=== PATIENT | female | born 1950 | race Caucasian/White ===

== ENCOUNTER 2024-05-08 19:51 | Observation (INO) | payer MEDICARE ==
--- NOTE | 2024-05-08 20:28 | ED ---
General Adult HPI - General Chief complaint: Syncope Stated complaint: Hypertension Time Seen by Provider: 05/08/24 20:04 Source: patient, RN notes reviewed, old records reviewed Mode of arrival: ambulatory Limitations: no limitations - History of Present Illness Initial comments: 74-year-old female presents after an episode of unresponsiveness lasting several seconds. History is obtained both from the patient and her who states that she was on the couch and felt as though her eyes had rolled back and she was unresponsive. After about 15 seconds the patient did respond and had no specific complaints. There was no postictal confusion. They had checked her blood pressure at home and noted that it was quite elevated. Patient was concerned that this was related to an antibiotic she was prescribed as she has had issues with antibiotics in the past. She was prescribed an antibiotic for sinus infection. No headache. No chest pain. No fever. No abdominal pain. No vomiting. She does report chronic diarrhea which is unchanged. Patient states she did have medication changed recently but is uncertain of the exact changes. - Related Data Allergies Allergy/AdvReac Type Severity Reaction Status Date / Time Penicillins Allergy Nausea & Verified 05/08/24 19:56 Vomiting & Diarrhea Influenza Virus Vaccines AdvReac Cough Verified 05/08/24 20:01 Latex, Natural Rubber AdvReac Rash/Hives Verified 05/08/24 19:56 Review of Systems ROS Statement: Those systems with pertinent positive or pertinent negative responses have been documented in the HPI. ROS Other: All systems not noted in ROS Statement are negative. Past Medical History Past Medical History: Atrial Fibrillation, Diabetes Mellitus, GERD/Reflux, Hypertension History of Any Multi-Drug Resistant Organisms: None Reported Additional Past Surgical History / Comment(s): cataract surgery Past Psychological History: No Psychological Hx Reported Smoking Status: Never smoker Past Alcohol Use History: None Reported Past Drug Use History: None Reported General Exam Limitations: no limitations General appearance: alert, in no apparent distress Head exam: Present: atraumatic, normocephalic Eye exam: Present: normal appearance, PERRL ENT exam: Present: mucous membranes dry Neck exam: Present: normal inspection. Absent: tenderness, meningismus Respiratory exam: Present: normal lung sounds bilaterally. Absent: respiratory distress, wheezes Cardiovascular Exam: Present: regular rate, normal rhythm GI/Abdominal exam: Present: soft. Absent: distended, tenderness, guarding Neurological exam: Present: alert, oriented X3, CN II-XII intact. Absent: motor sensory deficit Psychiatric exam: Present: normal affect, normal mood Skin exam: Present: warm, dry, intact. Absent: cyanosis, diaphoretic Course Vital Signs 05/08/24 05/08/24 19:56 21:47 Temperature 97.7 F Pulse Rate 74 68 Respiratory 16 16 Rate Blood Pressure 202/84 198/61 O2 Sat by Pulse 98 96 Oximetry Medical Decision Making - Medical Decision Making Was pt. sent in by a medical professional or institution (ROSSI Rosario, ENERGY ATTORNEY, urgent care, hospital, or care home...) When possible be specific @ -No Did you speak to anyone other than the patient for history (EMS, parent, family, police, friend...)? What history was obtained from this source @ -No Did you review nursing and triage notes (agree or disagree)? Why? @ -I reviewed and agree with nursing and triage notes Were old charts reviewed (outside hosp., previous admission, EMS record, old EKG, old radiological studies, urgent care reports/EKG's, care home records)? Report findings @ -No old charts were reviewed Differential Syncope: Valvular disease, hypertrophic cardiomyopathy, pulmonary embolism, tamponade, tachycardia, bradycardia, DC, hypovolemia, hemorrhage, dissection, anemia, intracranial hemorrhage, seizure, hypoglycemia, carbon monoxide poisoning, this is not meant to be an all-inclusive list. EKG interpreted by me (3pts min.). @ -Sinus rhythm rate of 66 baseline artifact limiting assessment DE interval 197, QRS duration 110, QTc [address] segment elevation ST segment depression in the inferior lead II X-rays interpreted by me (1pt min.). @ -None done CT interpreted by me (1pt min.). @CT brain negative for intracranial hemorrhage, chronic changes present. U/S interpreted by me (1pt. min.). @ -None done What testing was considered but not performed or refused? (CT, X-rays, U/S, labs)? Why? @ -None What meds were considered but not given or refused? Why? @ -None Did you discuss the management of the patient with other professionals (professionals i.e. ROSSI Rosario, ENERGY ATTORNEY, lab, RT, psych nurse, social work msw, citrus peeler, teacher, environmental health officer, welfare case worker)? Give summary @Case discussed with Luis Enrique stanley for [facility] Was smoking cessation discussed for >3mins.? @ -No Was critical care preformed (if so, how long)? @ -No Were there social determinants of health that impacted care today? How? (Homelessness, low income, unemployed, alcoholism, drug addiction, transportation, low edu. Level, literacy, decrease access to med. care, [facility], rehab)? @ -No Was there de-escalation of care discussed even if they declined (Discuss DNR or withdrawal of care, Hospice)? DNR status @ -No What co-morbidities impacted this encounter? (DM, HTN, Smoking, COPD, CAD, Cancer, CVA, ARF, Chemo, Hep., AIDS, mental health diagnosis, sleep apnea, morbid obesity)? @ -Hypertension, diabetes Was patient admitted / discharged? Hospital course, mention meds given and route, prescriptions, significant lab abnormalities, going to OR and other pertinent info. @ -74-year-old female with brief episode of unresponsiveness and elevated blood pressure. Patient had several medication changes earlier in the week believes that her metoprolol dose was adjusted and that she was possibly taken off of amiodarone. Patient's blood pressure is elevated in the emergency department with no headache or focal neurological complaints. Head CT is negative for intracranial hemorrhage, showing chronic changes. She has a normal CBC, normal CMP, magnesium 1.5 which is replaced. Patient will be observed overnight for telemetry, cardiology consultation. Undiagnosed new problem with uncertain prognosis? @ -No Drug Therapy requiring intensive monitoring for toxicity (Heparin, Nitro, Insulin, Cardizem)? @ -No Were any procedures done? @ -No Diagnosis/symptom? @ -Syncope, hypertension Acute, or Chronic, or Acute on Chronic? @ -[Acute Uncomplicated (without systemic symptoms) or Complicated (systemic symptoms)? @ -Default Side effects of treatment? @ -No Exacerbation, Progression, or Severe Exacerbation? @ -No Poses a threat to life or bodily function? How? (Chest pain, USA, DC, pneumonia, PE, COPD, DKA, ARF, appy, cholecystitis, CVA, Diverticulitis, Homicidal, S uicidal, threat to staff... and all critical care pts) @ -Moderate risk - Lab Data Result diagrams: 05/08/24 20:24 12/06/24 20:24 Lab Results 05/08/24 05/08/24 05/08/24 Range/Units 20:24 20:24 20:24 WBC 11.6 H (3.8-10.6) k/uL RBC 4.68 (3.80-5.40) m/uL Hgb 13.5 (11.4-16.0) gm/dL Hct 42.5 (34.0-46.0) % MCV 90.8 (80.0-100.0) fL MCH 28.9 (25.0-35.0) pg MCHC 31.8 (31.0-37.0) g/dL RDW 13.2 (11.5-15.5) % Plt Count 227 (150-450) k/uL MPV 9.3 Neutrophils % 81 % Lymphocytes % 14 % Monocytes % 4 % Eosinophils % 1 % Basophils % 0 % Neutrophils # 9.4 H (1.3-7.7) k/uL Lymphocytes # 1.6 (1.0-4.8) k/uL Monocytes # 0.4 (0-1.0) k/uL Eosinophils # 0.1 (0-0.7) k/uL Basophils # 0.0 (0-0.2) k/uL PT 10.2 (10.0-12.5) sec INR 0.9 (<1.2) APTT 24.2 (22.0-30.0) sec Sodium 139 (137-145) mmol/L Potassium 3.8 (3.5-5.1) mmol/L Chloride 100 (98-107) mmol/L Carbon Dioxide 28 (22-30) mmol/L Anion Gap 11 mmol/L BUN 24 H (7-17) mg/dL Creatinine 0.76 (0.52-1.04) mg/dL Est GFR (CKD-EPI)AfAm >90 (>60 ml/min/1.73 sqM) Est GFR (CKD-EPI)NonAf 79 (>60 ml/min/1.73 sqM) Glucose 211 H (74-99) mg/dL Calcium 9.4 (8.4-10.2) mg/dL Magnesium 1.5 L (1.6-2.3) mg/dL Total Bilirubin 0.5 (0.2-1.3) mg/dL AST 22 (14-36) U/L ALT 10 (4-34) U/L Alkaline Phosphatase 64 (38-126) U/L Troponin I (0.000-0.034) ng/mL Total Protein 7.2 (6.3-8.2) g/dL Albumin 4.4 (3.5-5.0) g/dL Urine Color Urine Appearance (Clear) Urine pH (5.0-8.0) Ur Specific Duncan (1.001-1.035) Urine Protein (Negative) Urine Glucose (UA) (Negative) Urine Ketones (Negative) Urine Blood (Negative) Urine Nitrite (Negative) Urine Bilirubin (Negative) Urine Urobilinogen (<2.0) mg/dL Ur Leukocyte Esterase (Negative) 05/08/24 05/08/24 Range/Units 20:24 20:54 WBC (3.8-10.6) k/uL RBC (3.80-5.40) m/uL Hgb (11.4-16.0) gm/dL Hct (34.0-46.0) % MCV (80.0-100.0) fL MCH (25.0-35.0) pg MCHC (31.0-37.0) g/dL RDW (11.5-15.5) % Plt Count (150-450) k/uL MPV Neutrophils % % Lymphocytes % % Monocytes % % Eosinophils % % Basophils % % Neutrophils # (1.3-7.7) k/uL Lymphocytes # (1.0-4.8) k/uL Monocytes # (0-1.0) k/uL Eosinophils # (0-0.7) k/uL Basophils # (0-0.2) k/uL PT (10.0-12.5) sec INR (<1.2) APTT (22.0-30.0) sec Sodium (137-145) mmol/L Potassium (3.5-5.1) mmol/L Chloride (98-107) mmol/L Carbon Dioxide (22-30) mmol/L Anion Gap mmol/L BUN (7-17) mg/dL Creatinine (0.52-1.04) mg/dL Est GFR (CKD-EPI)AfAm (>60 ml/min/1.73 sqM) Est GFR (CKD-EPI)NonAf (>60 ml/min/1.73 sqM) Glucose (74-99) mg/dL Calcium (8.4-10.2) mg/dL Magnesium (1.6-2.3) mg/dL Total Bilirubin (0.2-1.3) mg/dL AST (14-36) U/L ALT (4-34) U/L Alkaline Phosphatase (38-126) U/L Troponin I 0.014 (0.000-0.034) ng/mL Total Protein (6.3-8.2) g/dL Albumin (3.5-5.0) g/dL Urine Color Colorless Urine Appearance Clear (Clear) Urine pH 7.5 (5.0-8.0) Ur Specific Duncan 1.006 (1.001-1.035) Urine Protein Negative (Negative) Urine Glucose (UA) 4+ H (Negative) Urine Ketones Negative (Negative) Urine Blood Negative (Negative) Urine Nitrite Negative (Negative) Urine Bilirubin Negative (Negative) Urine Urobilinogen <2.0 (<2.0) mg/dL Ur Leukocyte Esterase Negative (Negative) Disposition Clinical Impression: Syncope, Hypertension Disposition: ADMITTED IP TO THIS HOSP Condition: Stable Is patient prescribed a controlled substance at d/c from ED?: No Referrals: Gerhard Beth DO [Primary Care Provider] - 1-2 days Time of Disposition: 22:15
[2024-05-08 20:44] LABS: Basophils % (A) 0 %; Eosinophils # (A) 0.1 k/uL (0-0.7); Eosinophils % (A) 1 %; HCT 42.5 % (34.0-46.0); HGB 13.5 gm/dL (11.4-16.0); Lymphocytes # (A) 1.6 k/uL (1.0-4.8); Lymphocytes % (A) 14 %; MCH 28.9 pg (25.0-35.0); MCHC 31.8 g/dL (31.0-37.0); MCV 90.8 fL (80.0-100.0); Mean Platelet Volume 9.3; Monocytes # (A) 0.4 k/uL (0-1.0); Monocytes % (A) 4 %; Neutrophils # (A) 9.4 k/uL (1.3-7.7); Neutrophils % (A) 81 %; Platelet Count 227 k/uL (150-450); RBC 4.68 m/uL (3.80-5.40); RDW 13.2 % (11.5-15.5); WBC 11.6 k/uL (3.8-10.6)
--- NOTE | 2024-05-08 20:54 | CT ---
EXAMINATION TYPE: CT brain wo con CT DLP: 1096 mGycm, Automated exposure control for dose reduction was used. DATE OF EXAM: 05/08/2024 8:45 PM COMPARISON: . CLINICAL INDICATION:Female, 74 years old with history of syncope/HTN, Syncope/HTN. TECHNIQUE: Brain: Axial CT images of the brain were obtained with coronal and sagittal reformats created and rev iewed. Contrast used: None. Oral contrast used: None. FINDINGS: Brain: Extra-axial spaces: Mildly prominent CSF attenuated fluid along the bilateral frontal convexities. Ventricular system: Dilatation in proportion to cerebral atrophy. Cerebral parenchyma: Cerebral atrophy. No acute intraparenchymal hemorrhage or mass effect. The cobian -white junction is well differentiated. Small area of hypoattenuation in the right parietal lobe li rd related to remote injury. Cerebellum: Unremarkable. Mass effect: No evidence of midline shift. Intracranial vasculature: Atherosclerotic calcifications of the intracranial vessels. Soft tissues: Normal. Calvarium/osseous structures: No acute depressed skull fracture. Paranasal sinuses and mastoid air cells: Mild scattered paranasal sinus disease. Visualized orbits: Right aphakia IMPRESSION: 1. No acute intracranial process. 2. Mildly prominent CSF attenuated fluid along the bilateral frontal convexities is likely related to atrophic changes and less likely chronic subdural hematomas. Correlate for any remote history of tra mata. This finding could be better delineated with MRI if clinically warranted. 3. Remote lacunar injury involving the right parietal lobe. [facility], , 05/08/2024 8:52 PM
[2024-05-08 20:57] LABS: INR 0.9 (<1.2); Partial Thromboplastin Time 24.2 sec (22.0-30.0); Prothrombin Time 10.2 sec (10.0-12.5)
[2024-05-08 20:59] LABS: ALT 10 U/L (4-34); AST 22 U/L (14-36); African American GFR (CKD) >90 (>60 ml/min/1.73 sqM); Albumin 4.4 g/dL (3.5-5.0); Alkaline Phosphatase 64 U/L (38-126); Anion Gap 11 mmol/L; Blood Urea Nitrogen 24 mg/dL (7-17); Calcium 9.4 mg/dL (8.4-10.2); Carbon Dioxide 28 mmol/L (22-30); Chloride 100 mmol/L (98-107); Glucose 211 mg/dL (74-99); Magnesium 1.5 mg/dL (1.6-2.3); Non-African American GFR(CKD) 79 (>60 ml/min/1.73 sqM); Potassium 3.8 mmol/L (3.5-5.1); Sodium 139 mmol/L (137-145); Total Bilirubin 0.5 mg/dL (0.2-1.3); Total Protein 7.2 g/dL (6.3-8.2)
[2024-05-08] MEDS: SODIUM CHLORIDE 0.9% 500 ML 500 ML IV STA (21:06)
[2024-05-08 21:13] LABS: Appearance,Urine Clear (Clear); Bilirubin,Urine Negative (Negative); Blood,Urine Negative (Negative); Color,Urine Colorless; Glucose,Urine (UA) 4+ (Negative); Ketones,Urine Negative (Negative); Leukocyte Esterase,Urine Negative (Negative); Nitrite,Urine Negative (Negative); PH, Urine 7.5 (5.0-8.0); Protein,Urine Negative (Negative); Specific Gravity,Urine 1.006 (1.001-1.035); Urobilinogen,Urine <2.0 mg/dL (<2.0)
[2024-05-08] MEDS ORDERED: NALOXONE 0.4 MG/ML 1 ML VIAL IV PRN (22:10)
[2024-05-08] MEDS: MAGNESIUM SULFATE-D5W PMX 1 GM in DEXTROSE/WATER 1 100ML.BAG IVPB ONE (22:59)
[2024-05-08] MEDS: SODIUM CHLORIDE 0.9% 1,000 ML IV SCH (23:35)
[2024-05-08] MEDS: APIXABAN 5 MG TAB PO SCH (23:35)
[2024-05-08] MEDS: metFORMIN 500 MG TAB PO SCH (23:44)
[2024-05-09] MEDS: DAPAGLIFLOZIN PROPANEDIOL 10 MG TABLET PO SCH (08:29)
[2024-05-09] MEDS: METOPROLOL TARTRATE 50 MG TAB PO SCH (08:29)
[2024-05-09] MEDS: amLODIPine 10 MG TAB PO SCH (08:29)
[2024-05-09] MEDS: CHLORTHALIDONE 25 MG TAB PO SCH (08:30)
--- NOTE | 2024-05-09 08:53 | P.CRDCN ---
History of Present Illness History of present illness: HISTORY OF PRESENT ILLNESS: This is a 74-year-old female with a past medical history significant for atrial fibrillation, hypertension, hyperlipidemia, and diabetes. Patient follows in the office with Dr. Narayan. We have been asked to see the patient in consultation for syncope and hypertension. Patient examined at the bedside. Patient states that she has been having some sinus problems over the past few days. She went to her PCP and was prescribed an antibiotic. She states that she took the first dose and then began to feel lightheaded. She states that she was sitting on the c ouch and passed out while she was sitting there. She states she was only out for 1 to 2 seconds and then came to. She denies feeling confused afterwards. Denies loss of bowel or bladder. Patient's blood pressure was found to be significantly elevated with a systolic greater than 200. DIAGNOSTICS: - EKG reveals sinus mechanism with right bundle branch block. - Laboratory data: WBC 11.6. Hemoglobin 13.5. Platelet count 227. Sodium 139. Potassium 3.8. BUN 24. Creatinine 0.76. Magnesium 1.5. Troponin negative x 3. - Current home cardiac medications include chlorthalidone 25 mg daily, metoprolol tartrate 50 mg twice a day, Eliquis 5 mg twice a day - Most recent echocardiogram obtained in November 2022 revealed ejection fraction 55%, mild diastolic dysfunction, aortic valve sclerosis with no pulmonary hypertension. -Patient underwent stress echocardiogram in October 2022. Patient walked for 6 minutes 21 seconds. No ischemia noted. REVIEW OF SYSTEMS: At the time of my exam: CONSTITUTIONAL: Denies fever or chills. HEENT: Denies blurred vision, vision changes, or eye pain. Denies hemoptysis CARDIOVASCULAR: Denies chest pain. Denies orthopnea. Denies PND. Denies palpitations RESPIRATORY: Denies shortness of breath. GASTROINTESTINAL: Denies abdominal pain. Denies nausea or vomiting. HEMATOLOGIC: Denies bleeding disorders. GENITOURINARY: Denies any blood in urine. SKIN: Denies pruitis. Denies rash. PHYSICAL EXAM: VITAL SIGNS: Reviewed. GENERAL: Well-developed in no acute distress. HEENT: Head is normocephalic. Pupils are equal, round. Sclerae anicteric. Mucous membranes of the mouth are moist. Neck supple. No JVD or thyromegaly LUNGS: Respirations even and unlabored. Lungs essentially clear to auscultation bilaterally. HEART: Regular rate and rhythm. S1 and S2 heard. Systolic murmur noted. ABDOMEN: Soft. Nondistended. Nontender. EXTREMITIES: Normal range of motion. No clubbing or cyanosis. Peripheral pulses intact. No lower extremity edema NEUROLOGIC: Awake and alert. Oriented x 3. ASSESSMENT: Hypertensive urgency Reported syncope Hypomagnesemia Paroxysmal atrial fibrillation History of hypertension History of hyperlipidemia Diabetes PLAN: Obtain 2D echo to assess cardiac structure and function Resume home cardiac medications Add amlodipine 10 mg daily If patient's blood pressure continues to remain elevated, add FATOU/ARB Obtain orthostatic blood pressures Continue telemetry monitoring to assess for any arrhythmias, significant bradycardia, or heart block Recheck magnesium this morning. Supplement per protocol. Further recommendations pending patient course Nurse practitioner note has been reviewed by physician. Signing provider agrees with the documented findings, assessment, and plan of care documented by THERAPEUTIC RECREATION ASSISTANT as a scribe. Past Medical History Past Medical History: Atrial Fibrillation, Diabetes Mellitus, GERD/Reflux, Hypertension History of Any Multi-Drug Resistant Organisms: None Reported Additional Past Surgical History / Comment(s): cataract surgery Past Psychological History: No Psychological Hx Reported Smoking Status: Never smoker Past Alcohol Use History: None Reported Past Drug Use History: None Reported Medications and Allergies Home Medications Medication Instructions Recorded Confirmed Type Apixaban [Eliquis] 5 mg PO BID 05/08/24 05/08/24 History Chlorthalidone 25 mg PO 05/08/24 History Empagliflozin [Jardiance] 25 mg PO 05/08/24 History Metoprolol Tartrate [Lopressor] 50 mg PO BID 05/08/24 05/08/24 History metFORMIN HCL ER [Glucophage XR] 1,000 mg PO BID 05/08/24 05/08/24 History Allergies Allergy/AdvReac Type Severity Reaction Status Date / Time Penicillins Allergy Nausea & Verified 05/08/24 19:56 Vomiting & Diarrhea Influenza Virus Vaccines AdvReac Cough Verified 05/08/24 20:01 Latex, Natural Rubber AdvReac Rash/Hives Verified 05/08/24 19:56 Physical Exam Vitals: Vital Signs Temp Pulse Pulse Resp BP BP Pulse Ox 05/09/24 02:00 97.8 F 65 17 161/71 96 05/08/24 23:00 58 L 16 216/69 96 05/08/24 21:47 68 16 198/61 96 05/08/24 19:56 97.7 F 74 16 202/84 98 Intake and Output 05/08/24 05/09/24 05/09/24 22:59 06:59 14:59 Other: # Voids 2 Weight 57.606 kg Results 05/08/24 20:24 05/08/24 20:24 Cardiac Enzymes 05/08/24 05/08/24 05/09/24 Range/Units 20:24 20:24 00:23 AST 22 (14-36) U/L Troponin I 0.014 0.018 (0.000-0.034) ng/mL 05/09/24 Range/Units 04:41 AST (14-36) U/L Troponin I 0.021 (0.000-0.034) ng/mL Coagulation 05/08/24 Range/Units 20:24 PT 10.2 (10.0-12.5) sec APTT 24.2 (22.0-30.0) sec CBC 05/08/24 Range/Units 20:24 WBC 11.6 H (3.8-10.6) k/uL RBC 4.68 (3.80-5.40) m/uL Hgb 13.5 (11.4-16.0) gm/dL Hct 42.5 (34.0-46.0) % Plt Count 227 (150-450) k/uL Comprehensive Metabolic Panel 05/08/24 Range/Units 20:24 Sodium 139 (137-145) mmol/L Potassium 3.8 (3.5-5.1) mmol/L Chloride 100 (98-107) mmol/L Carbon Dioxide 28 (22-30) mmol/L BUN 24 H (7-17) mg/dL Creatinine 0.76 (0.52-1.04) mg/dL Glucose 211 H (74-99) mg/dL Calcium 9.4 (8.4-10.2) mg/dL AST 22 (14-36) U/L ALT 10 (4-34) U/L Alkaline Phosphatase 64 (38-126) U/L Total Protein 7.2 (6.3-8.2) g/dL Albumin 4.4 (3.5-5.0) g/dL Current Medications Generic Name Dose Route Start Last Admin Trade Name Freq PRN Reason Stop Dose Admin Acetaminophen 650 mg 05/08/24 22:10 Acetaminophen Tab 325 Mg Tab PO Q6HR PRN Mild Pain or Fever > 100.5 Apixaban 5 mg 05/08/24 23:00 05/08/24 23:35 Apixaban 5 Mg Tab PO Not Given BID LASHAWN Protocol Chlorthalidone 25 mg 05/09/24 09:00 Chlorthalidone 25 Mg Tab PO DAILY LASHAWN Dapagliflozin 10 mg 05/09/24 09:00 Dapagliflozin Propanediol 10 Mg Tablet PO DAILY LASHAWN Sodium Chloride 1,000 mls @ 75 mls/hr 05/08/24 22:15 05/08/24 23:35 Saline 0.9% IV 75 mls/hr .[id number] LASHAWN Administration Metformin HCl 500 mg 05/09/24 00:00 05/08/24 23:44 Metformin 500 Mg Tab PO 500 mg Q6HR LASHAWN Administration Metoprolol Tartrate 25 mg 05/09/24 09:00 Metoprolol Tartrate 50 Mg Tab PO BID LASHAWN Naloxone HCl 0.2 mg 05/08/24 22:10 Naloxone 0.4 Mg/Ml 1 Ml Vial IV Q2M PRN Opioid Reversal Intake and Output 05/08/24 05/09/24 05/09/24 22:59 06:59 14:59 Other: # Voids 2 Weight 57.606 kg 05/08/24 20:24 05/08/24 20:24
[2024-05-09] MEDS ORDERED: DEXTROSE 50% SYRINGE 50 ML IVP PRN ×2 (09:25)
[2024-05-09] MEDS ORDERED: cloNIDine HCL 0.1 MG TAB PO PRN (09:27)
--- NOTE | 2024-05-09 11:39 | CA ---
Transthoracic Echo Report Name: Maylin Montoya Age: 74 Gender: F : 1950 Exam Date: 05/09/2024 08:39 Exam Location: [place] [facility] Ht (in): 59 Wt (lb): 127 Ordering Physician: Ro Christie Attending/Referring Phys: [id number], Shahnaz Legal Arbitrator Kecia Jin, SCARLETT Procedure CPT: Indications: LV function, syncope, elevated BP Cardiac Hx: Technical Quality: Good Contrast 1: Total Dose (mL): Contrast 2: Total Dose (mL): MEASUREMENTS (Male / Female) Normal Values 2D ECHO LV Diastolic Diameter PLAX 4.0 cm 4.2 - 5.9 / 3.9 - 5.3 cm LV Systolic Diameter PLAX 2.3 cm IVS Diastolic Thickness 1.4 cm 0.6 - 1.0 / 0.6 - 0.9 cm LVPW Diastolic Thickness 1.4 cm 0.6 - 1.0 / 0.6 - 0.9 cm LV Relative Wall Thickness 0.7 RV Internal Dim ED PLAX 3.3 cm LA Systolic Diameter LX 3.6 cm 3.0 - 4.0 / 2.7 - 3.8 cm LV Diastolic Volume MOD BP 89.7 cm??? 67 - 155 / 56 - 104 cm??? LV Systolic Volume MOD BP 29.6 cm??? 22 - 58 / 19 - 49 cm??? LV Ejection Fraction MOD BP 67.0 % >= 55 % LV Cardiac Index MOD BP 2074.8 cm???/min???m??? LV Diastolic Volume MOD 4C 88.4 cm??? LV Systolic Volume MOD 4C 31.5 cm??? LV Ejection Fraction MOD 4C 64.4 % LV Cardiac Index MOD 4C 1967.2 cm???/min???m??? LV Diastolic Length 4C 5.8 cm LV Systolic Length 4C 5.7 cm LV Diastolic Volume MOD 2C 88.8 cm??? LV Systolic Volume MOD 2C 25.7 cm??? LV Ejection Fraction MOD 2C 71.0 % LV Cardiac Index MOD 2C 2177.4 cm???/min???m??? LV Diastolic Length 2C 6.3 cm LV Systolic Length 2C 5.0 cm LA Volume 81.0 cm??? 18 - 58 / 22 - 52 cm??? LA Volume Index 51.8 cm???/m??? 16 - 28 cm???/m??? M-MODE Aortic Root Diameter MM 2.7 cm AV Cusp Separation MM 1.7 cm DOPPLER AV Peak Velocity 246.1 cm/s AV Peak Gradient 24.2 mmHg AV Mean Velocity 157.5 cm/s AV Mean Gradient 11.0 mmHg AV Velocity Time Integral 53.0 cm LVOT Peak Velocity 138.9 cm/s LVOT Peak Gradient 7.7 mmHg LVOT Velocity Time Integral 40.2 cm MV Peak Velocity 264.5 cm/s MV Peak Gradient 28.0 mmHg MV Mean Velocity 101.7 cm/s MV Mean Gradient 5.7 mmHg MV Velocity Time Integral 59.1 cm MV Area PHT 3.5 cm??? Mitral E Point Velocity 188.3 cm/s Mitral A Point Velocity 77.8 cm/s Mitral E to A Ratio 2.4 MV Deceleration Time 215.6 ms TR Peak Velocity 283.9 cm/s TR Peak Gradient 32.2 mmHg Right Ventricular Systolic Press 35.4 mmHg FINDINGS Left Ventricle Left ventricular ejection fraction is estimated at 60-65 %. Left ventricular cavity size normal. Moderate concentric left ventricular hypertrophy. Right Ventricle Mild right ventricular dilatation. Mild pulmonary hypertension. Right Atrium Normal right atrial size. No right atrial thrombus or mass seen. Left Atrium Severely increased left atrial volume. Mildly increased left atrial area. No left atrial thrombus or mass present. Mitral Valve Mitral valve thickened. Moderate mitral annular calcification. Moderate mitral stenosis with mean gradient of 6 mmHg Aortic Valve Aortic valve sclerosis. Mild aortic stenosis with a peak gradient of 24 mmHg and a mean gradient of 11 mmHg. Tricuspid Valve Structurally normal tricuspid valve. Mild tricuspid regurgitation. Pulmonic Valve Structurally normal pulmonic valve. Mild pulmonic regurgitation. Pericardium No pericardial or pleural effusion. Aorta Normal size aortic root and proximal ascending aorta. CONCLUSIONS Normal LV function Mitral annular calcification with moderate mitral stenosis Mild aortic stenosis Previewed by: Dr. Vijay Christiansen MD (Electronically Signed) Final Date: 09 May 2024 11:39
[2024-05-09] MEDS: ATORVASTATIN 40 MG TAB PO SCH (12:03)
[2024-05-09] MEDS: LOSARTAN 25 MG TAB PO SCH (12:03)
[2024-05-09] MEDS: carvediloL 3.125 MG TAB PO SCH (12:27)
[2024-05-09 13:22] LABS: Glucose,Whole Blood 187 mg/dL (70-110)
[2024-05-09] MEDS: INSULIN ASPART (NovoLOG) 100 UNIT/ML VIAL SQ SCH (13:56)
--- NOTE | 2024-05-09 15:02 | P.HPIM ---
History of Present Illness H&P Date: 05/09/24 History of present illness; Patient is a 74-year-old female with A-fib, diabetes mellitus, GERD, hype rtension presented with syncope and hypertension. Patient states that she was recently prescribed antibiotics for sinus infection. Yesterday after taking antibiotics she felt lightheaded and passed out on the couch for a few seconds. When she woke up she stated she was confused. There was no loss of bowel or bladder. Also was noted she had a systolic blood pressure over 200. This morning when seen she had no other complaints. Patient reports absence of fever, chills, chest pain, palpitations, diaphoresis, dyspnea, cough, abdominal pain, weakness, and dysuria. Initial labs WBC 11.6, hemoglobin of 13.5, INR 0.9, APTT 24.2, sodium 139, potassium 3.8, bicarb 28, gap 11, BUN 24, creatinine 0.76, glucose 211, magnesium 1.5, troponin 0.014 => 0.018 => 0.021, UA revealing glucose 4+. EKG done in the ER independently interpreted showed sinus rhythm heart rate of 66 with RBBB, no ST segment elevation or depression seen, no T-wave inversions seen. CT head done independently interpreted showed no acute intracranial process, mild CSF fluid collections breath consulting likely atrophic. Spoke with the ER physician, patient admission was accepted by internal medicine service for treatment. REVIEW OF SYSTEMS: Pertinent positives and negatives noted in HPI. PHYSICAL EXAMINATION: Vitals reviewed GENERAL: No acute distress. Well developed, well nourished. HEENT: Pupils are round and equally reacting to light. EOMI. No scleral icterus. Normocephalic, atraumatic. No pharyngeal erythema. No thyromegaly. CARDIOVASCULAR: S1 and S2 present. No murmurs, rubs, or gallops. PULMONARY: Chest is clear to auscultation, no wheezing, rhonchi, or crackles. ABDOMEN: Soft, nontender, nondistended, normoactive bowel sounds. No palpable organomegaly. MUSCULOSKELETAL: No apparent joint swelling and deformities. EXTREMITIES: No apparent cyanosis, clubbing, or pedal edema. NEUROLOGICAL: The patient is alert and oriented x3, Gross neurological examination did not reveal any focal deficits. SKIN: No apparent rashes. Assessment and plan Patient is a 74-year-old female with A-fib, diabetes mellitus, GERD, hypertension presented with syncope and hypertension. # Hypertensive urgency # Syncope Orthostatics WNL Echocardiogram findings of normal LV function EF of 60 to 65% Begin amlodipine 10 mg daily and losartan 25 mg daily Continuous cardiac monitoring Monitor BMP #Hypomagnesia Initially 1.5 => 1.8 Magnesium replacement given #Uncontrolled Hyperglycemia #Diabetes mellitus, type 2 Initial glucose 211 Holding oral medications Begin Accu-Cheks and low-dose sliding scale, monitor for hypoglycemia Pending HbA1c #Sinus infection Resume home antibiotic Chronic Medical Conditions # Essential hypertension -As above # Paroxysmal A-fib - Resume home Eliquis, holding metoprolol #Hyperlipidemia Resume home Lipitor F: IV Normal saline 75 mL/hr E: Given magnesium, replete as needed N: Heart healthy diet DVT ppx: Eliquis 5 mg twice daily Code status: Full code Anticipated discharge place: Home Anticipated discharge time: Tomorrow Dictation was produced using [employer] dictation software. Please excuse any grammatical, word or spelling errors. Past Medical History Past Medical History: Atrial Fibrillation, Diabetes Mellitus, GERD/Reflux, Hypertension History of Any Multi-Drug Resistant Organisms: None Reported Additional Past Surgical History / Comment(s): cataract surgery Past Psychological History: No Psychological Hx Reported Smoking Status: Never smoker Past Alcohol Use History: None Reported Past Drug Use History: None Reported Medications and Allergies Home Medications Medication Instructions Recorded Confirmed Type Apixaban [Eliquis] 5 mg PO BID 05/08/24 05/09/24 History Empagliflozin [Jardiance] 25 mg PO DAILY 05/08/24 05/09/24 History Metoprolol Tartrate [Lopressor] 50 mg PO BID 05/08/24 05/09/24 History metFORMIN HCL ER [Glucophage XR] 1,000 mg PO BID 05/08/24 05/09/24 History Amiodarone [Cordarone] 200 mg PO DAILY 05/09/24 05/09/24 History Atorvastatin [Lipitor] 40 mg PO DAILY 05/09/24 05/09/24 History Azithromycin [Zithromax Z Pack] See Taper PO DIRECTED 05/09/24 05/09/24 History Chlorthalidone [Hygroton] 25 mg PO DAILY 05/09/24 05/09/24 History Sulfamethox-Tmp 800-160Mg [Bactrim 1 tab PO Q12HR 12/07/24 12/07/24 History DS 800-160 mg] hydrOXYzine HCL [Hydroxyzine HCl] 10 mg PO Q8H PRN 05/09/24 05/09/24 History Allergies Allergy/AdvReac Type Severity Reaction Status Date / Time Penicillins Allergy Nausea & Verified 05/08/24 19:56 Vomiting & Diarrhea Influenza Virus Vaccines AdvReac Cough Verified 05/08/24 20:01 Latex, Natural Rubber AdvReac Rash/Hives Verified 05/08/24 19:56 Physical Exam Vitals: Vital Signs Temp Pulse Pulse Pulse Pulse Pulse Pulse 05/09/24 11:08 58 L 05/09/24 09:19 58 L 62 58 L 05/09/24 07:00 97.9 F 64 05/09/24 02:00 97.8 F 65 05/08/24 23:00 58 L 05/08/24 21:47 68 05/08/24 19:56 97.7 F 74 Resp BP BP BP BP BP Pulse Ox 05/09/24 11:08 199/69 95 05/09/24 09:19 214/74 206/74 201/68 05/09/24 07:00 16 213/72 97 05/09/24 02:00 17 161/71 96 05/08/24 23:00 16 216/69 96 05/08/24 21:47 16 198/61 96 05/08/24 19:56 16 202/84 98 Intake and Output 05/08/24 05/09/24 05/09/24 22:59 06:59 14:59 Intake Total 240 Balance 240 Intake: Oral 240 Other: # Voids 2 5 Weight 57.606 kg Results CBC & Chem 7: 05/08/24 20:24 05/08/24 20:24 Labs: Abnormal Lab Results - Last 24 Hours (Table) 05/08/24 05/08/24 05/08/24 Range/Units 20:24 20:24 20:54 WBC 11.6 H (3.8-10.6) k/uL Neutrophils # 9.4 H (1.3-7.7) k/uL BUN 24 H (7-17) mg/dL Glucose 211 H (74-99) mg/dL POC Glucose (mg/dL) (70-110) mg/dL Magnesium 1.5 L (1.6-2.3) mg/dL Urine Glucose (UA) 4+ H (Negative) 05/09/24 Range/Units 13:20 WBC (3.8-10.6) k/uL Neutrophils # (1.3-7.7) k/uL BUN (7-17) mg/dL Glucose (74-99) mg/dL POC Glucose (mg/dL) 187 H (70-110) mg/dL Magnesium (1.6-2.3) mg/dL Urine Glucose (UA) (Negative)
[2024-05-09 17:27] LABS: Glucose,Whole Blood 127 mg/dL (70-110)
[2024-05-09] MEDS: SULFAMETHOX-TMP 800-160MG 1 EACH TAB PO SCH (18:43)
[2024-05-09] MEDS: ACETAMINOPHEN TAB 325 MG TAB PO PRN (19:49)
[2024-05-09 19:59] LABS: Glucose,Whole Blood 169 mg/dL (70-110)
[2024-05-09] MEDS ORDERED: hydrALAZINE HCL 20 MG/ML 1 ML VIAL IVP PRN (20:55)
[2024-05-10 05:40] LABS: Glucose,Whole Blood 129 mg/dL (70-110)
[2024-05-10 07:42] VITALS: RESP 16
[2024-05-10 07:52] LABS: Basophils # (A) 0.1 k/uL (0-0.2); Basophils % (A) 1 %; Eosinophils # (A) 0.2 k/uL (0-0.7); Eosinophils % (A) 2 %; HCT 46.7 % (34.0-46.0); Lymphocytes # (A) 1.9 k/uL (1.0-4.8); Lymphocytes % (A) 21 %; MCH 28.7 pg (25.0-35.0); MCHC 32.2 g/dL (31.0-37.0); MCV 89.2 fL (80.0-100.0); Mean Platelet Volume 9.6; Monocytes # (A) 0.7 k/uL (0-1.0); Monocytes % (A) 7 %; Neutrophils # (A) 6.1 k/uL (1.3-7.7); Neutrophils % (A) 68 %; Platelet Count 274 k/uL (150-450); RBC 5.23 m/uL (3.80-5.40); RDW 13.5 % (11.5-15.5)
[2024-05-10 08:03] LABS: Partial Thromboplastin Time 24.1 sec (22.0-30.0); Prothrombin Time 10.6 sec (10.0-12.5)
[2024-05-10] MEDS: LOSARTAN 50 MG TAB PO SCH (08:09)
[2024-05-10 08:11] LABS: ALT 9 U/L (4-34); AST 20 U/L (14-36); African American GFR (CKD) 79 (>60 ml/min/1.73 sqM); Albumin 4.6 g/dL (3.5-5.0); Albumin/Globulin Ratio 1.5; Alkaline Phosphatase 70 U/L (38-126); Anion Gap 8 mmol/L; Blood Urea Nitrogen 16 mg/dL (7-17); Calcium 9.9 mg/dL (8.4-10.2); Carbon Dioxide 32 mmol/L (22-30); Chloride 99 mmol/L (98-107); Glucose 156 mg/dL (74-99); Magnesium 1.8 mg/dL (1.6-2.3); Non-African American GFR(CKD) 68 (>60 ml/min/1.73 sqM); Potassium 4.6 mmol/L (3.5-5.1); Sodium 139 mmol/L (137-145); Total Bilirubin 0.8 mg/dL (0.2-1.3); Total Protein 7.6 g/dL (6.3-8.2)
[2024-05-10] MEDS ORDERED: LOSARTAN 25 MG TAB PO SCH (09:00)
--- NOTE | 2024-05-10 10:59 | P.PN ---
Subjective HISTORY OF PRESENT ILLNESS: This is a 74-year-old female with a past medical history significant for atrial fibrillation, hypertension, hyperlipidemia, and diabetes. Patient follows in the office with Dr. Narayan. We have been asked to see the patient in consultation for syncope and hypertension. Patient examined at the bedside. Patient states that she has been having some sinus problems over the past few days. She went to her PCP and was prescribed an antibiotic. She states that she took the first dose and then began to feel lightheaded. She states that she was sitting on the couch and passed out while she was sitting there. She states she was only out for 1 to 2 seconds and then came to. She denies feeling confused afterwards. D enies loss of bowel or bladder. Patient's blood pressure was found to be significantly elevated with a systolic greater than 200. DIAGNOSTICS: - EKG reveals sinus mechanism with right bundle branch block. - Laboratory data: WBC 11.6. Hemoglobin 13.5. Platelet count 227. Sodium 139. Potassium 3.8. BUN 24. Creatinine 0.76. Magnesium 1.5. Troponin negative x 3. - Current home cardiac medications include chlorthalidone 25 mg daily, metoprolol tartrate 50 mg twice a day, Eliquis 5 mg twice a day - Most recent echocardiogram obtained in November 2022 revealed ejection fraction 55%, mild diastolic dysfunction, aortic valve sclerosis with no pulmonary hypertension. -Patient underwent stress echocardiogram in October 2022. Patient walked for 6 minutes 21 seconds. No ischemia noted. 05/10/2024 Patient examined this morning at bedside. Patient currently denies chest pain or pressure. She denies shortness of breath. Blood pressure remains elevated this morning at 190/76. Telemetry reveals sinus mechanism. Echocardiogram completed revealing ejection fraction 60 to 65%, mild pulmonary hypertension, moderate mitral stenosis, mild aortic stenosis, mild tricuspid regurgitation PHYSICAL EXAM: VITAL SIGNS: Reviewed. GENERAL: Well-developed in no acute distress. HEENT: Head is normocephalic. Pupils are equal, round. Sclerae anicteric. Mucous membranes of the mouth are moist. Neck supple. No JVD or thyromegaly LUNGS: Respirations even and unlabored. Lungs essentially clear to auscultation bilaterally. HEART: Regular rate and rhythm. S1 and S2 heard. Systolic murmur noted. ABDOMEN: Soft. Nondistended. Nontender. EXTREMITIES: Normal range of motion. No clubbing or cyanosis. Peripheral pulses intact. No lower extremity edema NEUROLOGIC: Awake and alert. Oriented x 3. ASSESSMENT: Hypertensive urgency Reported syncope Hypomagnesemia Paroxysmal atrial fibrillation History of hypertension History of hyperlipidemia Diabetes PLAN: 2D echo obtained and reviewed Continue amlodipine 10 mg daily Increase losartan to 100 mg daily Discontinue PRN IVP antihypertensive medications as this makes it difficult to determine appropriate oral regimen Obtain labs for secondary hypertension Obtain renal artery Doppler to rule out renal artery stenosis Check manual blood pressures Further recommendations pending patient course Nurse practitioner note has been reviewed by physician. Signing provider agrees with the documented findings, assessment, and plan of care documented by FRAUD INVESTIGATOR as a scribe. Objective - Vital Signs Vital signs: Vital Signs Temp 98.3 F 05/10/24 06:45 Pulse 60 05/10/24 06:45 Resp 16 05/10/24 06:45 BP 190/76 05/10/24 06:45 Pulse Ox 97 05/10/24 06:45 FiO2 Intake & Output 05/09/24 05/10/24 05/10/24 18:59 06:59 18:59 Intake Total 800 240 Balance 800 240 Intake: Oral 800 240 Other: # Voids 5 1 - Labs CBC & Chem 7: 05/10/24 06:59 05/10/24 06:59 Labs: Abnormal Lab Results - Last 24 Hours (Table) 05/09/24 05/09/24 05/09/24 Range/Units 13:20 17:26 19:57 Hct (34.0-46.0) % Carbon Dioxide (22-30) mmol/L Glucose (74-99) mg/dL POC Glucose (mg/dL) 187 H 127 H 169 H (70-110) mg/dL 05/10/24 05/10/24 05/10/24 Range/Units 05:38 06:59 06:59 Hct 46.7 H (34.0-46.0) % Carbon Dioxide 32 H (22-30) mmol/L Glucose 156 H (74-99) mg/dL POC Glucose (mg/dL) 129 H (70-110) mg/dL
--- NOTE | 2024-05-10 12:10 | US ---
EXAMINATION TYPE: US renal artery duplex complet DATE OF EXAM: 05/10/2024 COMPARISON: NONE CLINICAL INDICATION: Female, 74 years old with history of r/o renal artery stenosis; uncontrolled HTN TECHNIQUE: Grayscale, color Doppler and spectral Doppler imaging of the bilateral renal arteries and kidneys. FINDINGS: MEASUREMENTS: RENAL SIZE: Right Kidney: 10.2 x 5.3 x 4.4 cm Left Kidney: 9.3 x 5.0 x 5.5 cm Right Kidney: No hydronephrosis or lesions seen Left Kidney: No hydronephrosis or lesions seen Abd Aorta: No AAA visualized at time of scan RESISTANCE INDEX Right: 0.8 Left: 0.8 RA/AO RATIO (< 3.5 ) Right: 1.8 Left: 1.6 RENAL ARTERY VELOCITY ( < 180 cm/s) Right: 190 Left: 170 Appropriate color Doppler flow and spectral waveforms to the kidneys bilaterally. IMPRESSION: 1. No evidence for left renal artery stenosis. 2. Cannot exclude minimal right renal artery stenosis.. [facility], , 05/10/2024 12:07 PM
[2024-05-10 12:13] LABS: Glucose,Whole Blood 132 mg/dL (70-110)
--- NOTE | 2024-05-10 13:26 | P.PN ---
Subjective Progress Note Date: 05/10/24 History of present illness; Patient is a 74-year-old female with A-fib, diabetes mellitus, GERD, hypertens ion presented with syncope and hypertension. Patient states that she was recently prescribed antibiotics for sinus infection. Yesterday after taking antibiotics she felt lightheaded and passed out on the couch for a few seconds. When she woke up she stated she was confused. There was no loss of bowel or bladder. Also was noted she had a systolic blood pressure over 200. This morning when seen she had no other complaints. Patient reports absence of fever, chills, chest pain, palpitations, diaphoresis, dyspnea, cough, abdominal pain, weakness, and dysuria. Initial labs WBC 11.6, hemoglobin of 13.5, INR 0.9, APTT 24.2, sodium 139, potassium 3.8, bicarb 28, gap 11, BUN 24, creatinine 0.76, glucose 211, magnesium 1.5, troponin 0.014 => 0.018 => 0.021, UA revealing glucose 4+. EKG done in the ER independently interpreted showed sinus rhythm heart rate of 66 with RBBB, no ST segment elevation or depression seen, no T-wave inversions seen. CT head done independently interpreted showed no acute intracranial process, mild CSF fluid collections breath consulting likely atrophic. Spoke with the ER physician, patient admission was accepted by internal medicine service for treatment. 05/10/2024 Patient is evaluated today in follow-up in the medical floor sitting at the bedside with her . She is not reporting any dizziness or lightheadedness at this time. She does continue to have episodes of hypertension with a systolic of 190s today. She continues on amlodipine and cardiology has also increased the losartan. Secondary hypertension workup in progress with a renal artery ultrasound as well as metanephrines and renin which are all currently pending at this time. Repeat orthostatics today are pending. Review of Systems Constitutional: Denied any fatigue denied any fever. Cardio vascular: denied any chest pain, palpitations Gastrointestinal: denied any nausea, vomiting, diarrhea Pulmonary: Denied any shortness of breath cough Neurologic denied any new focal deficits All inpatient medications were reviewed and appropriate changes in these medications as dictated in the interval history and assessment and plan. PHYSICAL EXAMINATION: Vitals reviewed GENERAL: No acute distress. Well developed, well nourished. HEENT: Pupils are round and equally reacting to light. EOMI. No scleral icterus. Normocephalic, atraumatic. No pharyngeal erythema. No thyromegaly. CARDIOVASCULAR: S1 and S2 present. No murmurs, rubs, or gallops. PULMONARY: Chest is clear to auscultation, no wheezing, rhonchi, or crackles. ABDOMEN: Soft, nontender, nondistended, normoactive bowel sounds. No palpable organomegaly. MUSCULOSKELETAL: No apparent joint swelling and deformities. EXTREMITIES: No apparent cyanosis, clubbing, or pedal edema. NEUROLOGICAL: The patient is alert and oriented x3, Gross neurological examination did not reveal any focal deficits. SKIN: No apparent rashes. Assessment and plan Patient is a 74-year-old female with A-fib, diabetes mellitus, GERD, hypertension presented with syncope and hypertension. # Hypertensive urgency # Syncope Orthostatics WNL Echocardiogram findings of normal LV function EF of 60 to 65% Begin amlodipine 10 mg daily and losartan 25 mg daily Continuous cardiac monitoring Monitor BMP -Secondary hypertension workup in progress with a renal ultrasound, metanephrines and direct renin #Hypomagnesia Initially 1.5 => 1.8 Magnesium replacement given #Uncontrolled Hyperglycemia #Diabetes mellitus, type 2 Initial glucose 211 Holding oral medications Begin Accu-Cheks and low-dose sliding scale, monitor for hypoglycemia Pending HbA1c #Sinus infection Resume home antibiotic Chronic Medical Conditions # Essential hypertension -As above # Paroxysmal A-fib - Resume home Eliquis, holding metoprolol #Hyperlipidemia Resume home Lipitor F: IV Normal saline 75 mL/hr E: Given magnesium, replete as needed N: Heart healthy diet DVT ppx: Eliquis 5 mg twice daily Code status: Full code Anticipated discharge place: Home Anticipated discharge time: Tomorrow Dictation was produced using [email or web address] dictation software. Please excuse any grammatical, word or spelling errors. Objective - Vital Signs Vital signs: Vital Signs Temp 98.3 F 05/10/24 06:45 Pulse 60 05/10/24 06:45 Resp 16 05/10/24 06:45 BP 190/76 05/10/24 06:45 Pulse Ox 97 05/10/24 06:45 FiO2 Intake & Output 05/09/24 05/10/24 05/10/24 18:59 06:59 18:59 Intake Total 800 240 Balance 800 240 Intake: Oral 800 240 Other: # Voids 5 1 - Labs CBC & Chem 7: 05/10/24 06:59 05/10/24 06:59 Labs: Abnormal Lab Results - Last 24 Hours (Table) 05/09/24 05/09/24 05/10/24 Range/Units 17:26 19:57 05:38 Hct (34.0-46.0) % Carbon Dioxide (22-30) mmol/L Glucose (74-99) mg/dL POC Glucose (mg/dL) 127 H 169 H 129 H (70-110) mg/dL Hemoglobin A1c (<=6.0) % 05/10/24 05/10/24 05/10/24 Range/Units 06:59 06:59 06:59 Hct 46.7 H (34.0-46.0) % Carbon Dioxide 32 H (22-30) mmol/L Glucose 156 H (74-99) mg/dL POC Glucose (mg/dL) (70-110) mg/dL Hemoglobin A1c 7.8 H (<=6.0) % 05/10/24 Range/Units 12:12 Hct (34.0-46.0) % Carbon Dioxide (22-30) mmol/L Glucose (74-99) mg/dL POC Glucose (mg/dL) 132 H (70-110) mg/dL Hemoglobin A1c (<=6.0) % Assessment and Plan Time with Patient: Less than 30
[2024-05-10 17:06] LABS: Glucose,Whole Blood 158 mg/dL (70-110)
[2024-05-10 20:11] LABS: Glucose,Whole Blood 263 mg/dL (70-110)
[2024-05-11 05:51] LABS: Glucose,Whole Blood 154 mg/dL (70-110)
[2024-05-11] MEDS: hydrALAZINE HCL 25 MG TAB PO SCH (08:49)
[2024-05-11 09:54] VITALS: BP 155/78; PULSE 60; TEMP 97.7
--- NOTE | 2024-05-11 10:08 | P.PN ---
Subjective Progress Note Date: 05/11/24 HISTORY OF PRESENT ILLNESS: This is a 74-year-old female with a past medical history significant for atrial fibrillation, hypertension, hyperlipidemia, and diabetes. Patient follows in the office with Dr. Narayan. We have been asked to see the patient in consultation for syncope and hypertension. Patient examined at the bedside. Patient states that she has been having some sinus problems over the past few days. She went to her PCP and was prescribed an antibiotic. She states that she took the first dose and then began to feel lightheaded. She states that she was sitting on the couch and passed out while she was sitting there. She states she was only out for 1 to 2 seconds and then came to. She denies feeling confused afterwards. Denies loss of bowel or bladder. Patient's blood pressure was found to be significantly elevated with a systolic greater than 200. DIAGNOSTICS: - EKG reveals sinus mechanism with right bundle branch block. - Laboratory data: WBC 11.6. Hemoglobin 13.5. Platelet count 227. Sodium 139. Potassium 3.8. BUN 24. Creatinine 0.76. Magnesium 1.5. Troponin negative x 3. - Current home cardiac medications include chlorthalidone 25 mg daily, metoprolol tartrate 50 mg twice a day, Eliquis 5 mg twice a day - Most recent echocardiogram obtained in November 2022 revealed ejection fraction 55%, mild diastolic dysfunction, aortic valve sclerosis with no pulmonary hypertension. -Patient underwent stress echocardiogram in October 2022. Patient walked for 6 minutes 21 seconds. No ischemia noted. 05/10/2024 Patient examined this morning at bedside. Patient currently denies chest pain or pressure. She denies shortness of breath. Blood pressure remains elevated t his morning at 190/76. Telemetry reveals sinus mechanism. Echocardiogram completed revealing ejection fraction 60 to 65%, mild pulmonary hypertension, moderate mitral stenosis, mild aortic stenosis, mild tricuspid regurgitation 05/11/2024 Patient is seen and examined. Yesterday losartan was increased to 100 mg daily and continued on amlodipine 10 mg. Blood pressure readings are improved today, blood pressure 153/77, heart rate in the 70s, pulse ox 97% on room air. Renal ultrasound revealed no left renal artery stenosis and cannot exclude minimal right renal artery stenosis. PHYSICAL EXAM: VITAL SIGNS: Reviewed. GENERAL: Well-developed in no acute distress. HEENT: Head is normocephalic. Pupils are equal, round. Sclerae anicteric. Mucous membranes of the mouth are moist. Neck supple. No JVD or thyromegaly LUNGS: Respirations even and unlabored. Lungs essentially clear to auscultation bilaterally. HEART: Regular rate and rhythm. S1 and S2 heard. Systolic murmur noted. ABDOMEN: Soft. Nondistended. Nontender. EXTREMITIES: Normal range of motion. No clubbing or cyanosis. Peripheral pulses intact. No lower extremity edema NEUROLOGIC: Awake and alert. Oriented x 3. ASSESSMENT: Hypertensive urgency Reported syncope Hypomagnesemia Paroxysmal atrial fibrillation History of hypertension History of hyperlipidemia Diabetes PLAN: 2D echo obtained and reviewed Continue amlodipine 10 mg daily and losartan to 100 mg daily Add hydralazine 25 mg 3 times daily Obtain labs for secondary hypertension--results pending and can be followed up as an outpatient Discontinue beta-sandy at discharge, this has been removed from her medication list If blood pressure is improved by this afternoon, patient is cleared for discharge and will follow-up with Dr. LEANDRA Narayan next Saturday. Obtain 2-week event monitor prior to discharge. Nurse practitioner note has been reviewed by physician. Signing provider agrees with the documented findings, assessment, and plan of care documented by STRUCTURAL DRAFTSMAN as a scribe. Objective - Vital Signs Vital signs: Vital Signs Temp 98.1 F 05/11/24 01:59 Pulse 61 05/11/24 01:59 Resp 16 05/11/24 01:59 BP 153/77 05/11/24 01:59 Pulse Ox 97 05/11/24 01:59 FiO2 Intake & Output 05/10/24 05/11/24 05/11/24 18:59 06:59 18:59 Intake Total 480 Balance 480 Intake: Oral 480 Other: # Voids 5 3 - Labs CBC & Chem 7: 05/10/24 06:59 05/10/24 06:59 Labs: Abnormal Lab Results - Last 24 Hours (Table) 05/10/24 05/10/24 05/10/24 Range/Units 06:59 06:59 12:12 Carbon Dioxide 32 H (22-30) mmol/L Glucose 156 H (74-99) mg/dL POC Glucose (mg/dL) 132 H (70-110) mg/dL Hemoglobin A1c 7.8 H (<=6.0) % 05/10/24 05/10/24 05/11/24 Range/Units 17:06 20:09 05:50 Carbon Dioxide (22-30) mmol/L Glucose (74-99) mg/dL POC Glucose (mg/dL) 158 H 263 H 154 H (70-110) mg/dL Hemoglobin A1c (<=6.0) %
--- NOTE | 2024-05-11 13:39 | P.DS ---
Providers Date of admission: 05/08/24 22:10 Expected date of discharge: 05/11/24 Attending physician: Gina Rebolledo Consults: 05/08/24 22:10 Consult Physician Routine Consulting Provider: Michelle Narayan Consult Reason/Comments: Syncope, hypertension Do you want consulting provider notified?: Yes Primary care physician: [facility] Course: Discharge diagnoses; # Hypertensive urgency # Syncope #Hypomagnesia #Diabetes mellitus, type 2 #Sinus infection # Essential hypertension # Paroxysmal A-fib #Hyperlipidemia Hospital course; History of present illness; Patient is a 74-year-old female with A-fib, diabetes mellitus, GERD, hypertension presented with syncope and hypertension. Patient states that she was recently prescribed antibiotics for sinus infection. Yesterday after taking antibiotics she felt lightheaded and passed out on the couch for a few seconds. When she woke up she stated she was confused. There was no loss of bowel or bladder. Also was noted she had a systolic blood pressure over 200. This morning when seen she had no other complaints. Patient reports absence of fever, chills, chest pain, palpitations, diaphoresis, dyspnea, cough, abdominal pain, weakness, and dysuria. Initial labs WBC 11.6, hemoglobin of 13.5, INR 0.9, APTT 24.2, sodium 139, potassium 3.8, bicarb 28, gap 11, BUN 24, creatinine 0.76, glucose 211, magnesium 1.5, troponin 0.014 => 0.018 => 0.021, UA revealing glucose 4+. EKG done in the ER independently interpreted showed sinus rhythm heart rate of 66 with RBBB, no ST segment elevation or depression seen, no T-wave inversions seen. CT head done independently interpreted showed no acute intracranial process, mild CSF fluid collections breath consulting likely atrophic. During hospital stay patient treated for hypertensive urgency and syncope. Echocardiogram findings of normal LV function EF of 60 to 65%. Beta-sandy was discontinued. She was also worked up for secondary causes of hypertension with renal ultrasound, metanephrines and direct renin. HbA1c 7.8. Cortisol 9.1 was WNL. Renal artery duplex with possible minimal right renal artery stenosis. Patient discharged in stable condition to home. She is discharged with new medications amlodipine 10 mg daily, hydralazine 25 mg 3 times daily, losartan 100 mg daily. Metoprolol and her antibiotics were discontinued. She is to follow-up with cardiology Dr. Narayan on May 19 and her PCP. PHYSICAL EXAMINATION: Vitals reviewed GENERAL: No acute distress. Well developed, well nourished. HEENT: Pupils are round and equally reacting to light. EOMI. No scleral icterus. Normocephalic, atraumatic. No pharyngeal erythema. No thyromegaly. CARDIOVASCULAR: S1 and S2 present. No murmurs, rubs, or gallops. PULMONARY: Chest is clear to auscultation, no wheezing, rhonchi, or crackles. ABDOMEN: Soft, nontender, nondistended, normoactive bowel sounds. No palpable organomegaly. MUSCULOSKELETAL: No apparent joint swelling and deformities. EXTREMITIES: No apparent cyanosis, clubbing, or pedal edema. NEUROLOGICAL: The patient is alert and oriented x3, Gross neurological examination did not reveal any focal deficits. SKIN: No apparent rashes. Dictation was produced using [employer] dictation software. please excuse any grammatical, word or spelling errors. Patient Condition at Discharge: Stable Plan - Discharge Summary New Discharge Prescriptions: New amLODIPine [Norvasc] 10 mg PO DAILY #30 tab hydrALAZINE HCL [Apresoline] 25 mg PO TID #90 tab Losartan [Cozaar] 100 mg PO DAILY 30 Days #60 tab Continue metFORMIN HCL ER [Glucophage XR] 1,000 mg PO BID Empagliflozin [Jardiance] 25 mg PO DAILY Apixaban [Eliquis] 5 mg PO BID Atorvastatin [Lipitor] 40 mg PO DAILY hydrOXYzine HCL 10 mg PO Q8H PRN PRN Reason: Anxiety Amiodarone [Cordarone] 200 mg PO DAILY Chlorthalidone [Hygroton] 25 mg PO DAILY Discontinued Metoprolol Tartrate [Lopressor] 50 mg PO BID Sulfamethox-Tmp 800-160Mg [Bactrim DS 800-160 mg] 1 tab PO Q12HR Azithromycin [Zithromax Z Pack] See Taper PO DIRECTED Discharge Medication List Apixaban [Eliquis] 5 mg PO BID 05/08/24 [History] Empagliflozin [Jardiance] 25 mg PO DAILY 05/08/24 [History] metFORMIN HCL ER [Glucophage XR] 1,000 mg PO BID 05/08/24 [History] Amiodarone [Cordarone] 200 mg PO DAILY 05/09/24 [History] Atorvastatin [Lipitor] 40 mg PO DAILY 05/09/24 [History] Chlorthalidone [Hygroton] 25 mg PO DAILY 05/09/24 [History] hydrOXYzine HCL 10 mg PO Q8H PRN 05/09/24 [History] Losartan [Cozaar] 100 mg PO DAILY 30 Days #60 tab 05/11/24 [Rx] amLODIPine [Norvasc] 10 mg PO DAILY #30 tab 05/11/24 [Rx] hydrALAZINE HCL [Apresoline] 25 mg PO TID #90 tab 05/11/24 [Rx] Follow up Appointment(s)/Referral(s): Michelle Narayan MD [STAFF PHYSICIAN] - 05/19/24 9:00 am (Saturday AM please) Gerhard Beth DO [Primary Care Provider] - 1-2 days Patient Instructions/Handouts: Hypertensive Crisis (DC) Discharge Disposition: HOME SELF-CARE
== END 2024-05-11 12:24 | disposition home or self-care (01) ==
LOC: EC 19:51 → 6NMEDSUR 22:10
PROVIDERS: ADMIT Hospitalist; ATTEND Hospitalist
DX: I16.0 Hypertensive urgency (principal); R55 Syncope and collapse; I10 Essential (primary) hypertension; E83.42 Hypomagnesemia; E11.65 Type 2 diabetes mellitus with hyperglycemia; I48.0 Paroxysmal atrial fibrillation; K21.9 Gastro-esophageal reflux disease without esophagitis; E78.5 Hyperlipidemia, unspecified; J32.9 Chronic sinusitis, unspecified; Z79.01 Long term (current) use of anticoagulants; Z79.84 Long term (current) use of oral hypoglycemic drugs; Z79.899 Other long term (current) drug therapy; Z88.0 Allergy status to penicillin; Z91.040 Latex allergy status
CPT/HCPCS: 96365; 96361; 99285; 36415; 93005; 93306; 93270; 83835; 80053 ×2; 82533; 82088; 84244; 83735 ×3; 84484 ×2; 85025 ×2; 85610 ×2; 85730 ×2; 81003; 83036; 93975; 70450; G0378 ×4; J3475

== ENCOUNTER 2024-09-22 05:43 | Day surgery (SDC) | payer MEDICARE ==
[2024-09-18 10:37] VITALS: BMI 30.4
[2024-09-22] MEDS: IV FLUID CONTINUATION 1,000 ML IV ONE (07:10)
[2024-09-22] MEDS: SODIUM CHLORIDE 0.9% 500 ML 500 ML IV SCH (07:15)
[2024-09-22 07:16] LABS: Glucose,Whole Blood 149 mg/dL (70-110)
[2024-09-22] MEDS: ONDANSETRON 4 MG/2 ML VIAL IVP STA (07:16)
[2024-09-22] MEDS: DEXAMETHASONE SOD PHOSPHATE 4 MG/ML 1 ML VIAL IVP STA (07:16)
[2024-09-22 07:25] VITALS: TEMP 97
[2024-09-22] MEDS ORDERED: PROPOFOL 10 MG/ML 20 ML VIAL IV ONE (07:28)
[2024-09-22 08:31] VITALS: RESP 16
[2024-09-22 09:02] VITALS: BP 102/63; PULSE 60
--- NOTE | 2024-09-22 09:40 | CE ---
CARDIAC ELECTROPHYSIOLOGY REPORT PROCEDURE PERFORMED: Electrical cardioversion. INDICATION: Persistent atrial fibrillation. CLINICAL INFORMATION: This is a 74-year-old lady with a known history of paroxysmal atrial fibrillation, hypertension, diabetes, and hyperlipidemia. She has developed atrial fibrillation that seems to persist for the last 3 weeks. She has been very compliant and taking her Eliquis regularly. After placing her on amiodarone and beta blockers, we achieved rate control and we brought her in for electrical cardioversion. All risks, benefits, options were explained. PROCEDURE NOTE: Under the influence of [id number] intravenous anesthetic agent with the attendance of the anesthesiologist, initial shock of 120 joules was given with anterior and posterior patches. The patient remained in atrial fibrillation and a second shock of 200 joules was then delivered. She converted to sinus rhythm, remained hemodynamically stable and neurologically intact. This was a successful electrical cardioversion. The patient will be discharged later on today. She will be on amiodarone 200 mg daily, metoprolol tartrate 25 mg t.i.d., and I will see her in the office on the of this month. MMODL / IJN: [id number] /
== END 2024-09-22 09:21 | disposition home or self-care (01) ==
LOC: OR 05:43
PROVIDERS: ATTEND Internal Medicine Interventional Cardiology
DX: I48.19 Other persistent atrial fibrillation (principal); K21.9 Gastro-esophageal reflux disease without esophagitis; E11.9 Type 2 diabetes mellitus without complications; E78.00 Pure hypercholesterolemia, unspecified; I10 Essential (primary) hypertension; Z72.0 Tobacco use; Z88.0 Allergy status to penicillin; Z88.7 Allergy status to serum and vaccine; Z91.040 Latex allergy status; Z79.02 Long term (current) use of antithrombotics/antiplatelets; Z79.84 Long term (current) use of oral hypoglycemic drugs; Z79.899 Other long term (current) drug therapy
CPT/HCPCS: 92960; J1100; J2405; J2704